=== PATIENT | male | born 1935 | race Caucasian/White ===

== ENCOUNTER 2020-04-29 09:24 | Outpatient (CLI) | payer OTHER | END 2020-04-29 10:00 | disposition home or self-care (01) | LOC: WOUND MED 09:24 | PROVIDERS: ATTEND Specialist | DX: E11.621 Type 2 diabetes mellitus with foot ulcer (principal); L97.522 Non-pressure chronic ulcer of other part of left foot with fat layer exposed | CPT/HCPCS: 11042; A4554; A4930; A6216; A6219; G0463 ==

== ENCOUNTER 2020-05-06 07:42 | Outpatient (CLI) | payer OTHER | END 2020-05-06 14:27 | disposition home or self-care (01) | LOC: WOUND MED 07:42 | PROVIDERS: ATTEND Specialist | DX: E11.621 Type 2 diabetes mellitus with foot ulcer (principal); L97.522 Non-pressure chronic ulcer of other part of left foot with fat layer exposed | CPT/HCPCS: 11042; A4554; A4930; A6216; A6219; A6266 ==

== ENCOUNTER → 2020-05-20 | Outpatient (CLI) | payer OTHER | END | disposition home or self-care (01) | LOC: WOUND MED 10:15 | PROVIDERS: ATTEND Specialist | DX: E11.621 Type 2 diabetes mellitus with foot ulcer (principal); L97.522 Non-pressure chronic ulcer of other part of left foot with fat layer exposed | CPT/HCPCS: 11042; A4554; A4930; A6216; A6219 ==

== ENCOUNTER 2020-06-03 07:58 | Outpatient (CLI) | payer OTHER | END 2020-06-03 09:00 | disposition home or self-care (01) | LOC: WOUND MED 07:58 | PROVIDERS: ATTEND Specialist | DX: E11.621 Type 2 diabetes mellitus with foot ulcer (principal); L97.522 Non-pressure chronic ulcer of other part of left foot with fat layer exposed | CPT/HCPCS: 11042; A4554; A4930; A6216; A6219 ==